=== PATIENT | female | born 1950 | race Caucasian/White ===

== ENCOUNTER 2018-09-14 14:15 | Inpatient (IN) ==
[2018-09-14] MEDS ORDERED: ZOFRAN IV PRN (15:11)
--- NOTE | 2018-09-14 15:21 | HISTORY AND PHYSICAL ---
HISTORY OF PRESENT ILLNESS: This is a 67-year-old white female patient of BRYSON Mccloud. She has had some tenderness in her left lower quadrant now for a couple of weeks. I saw her with recheck in the clinic 2 days ago, on Tuesday, and put her on a combination of Cipro 500 mg twice a day and Flagyl 500 mg twice a day, but she reports that she has been basically in the bed and lethargic for a couple of months with what she felt was respiratory congestion and even possible pneumonia. She is very short of breath and just getting up from the chair to get up on the exam table, she was short of breath. This shortness of breath seems to be more acute. She has had a history of DVT in the past. She denies any fever or chills, pleuritic pain or productive cough. No orthopnea, no paroxysmal nocturnal dyspnea, and no squeezing or pressure type chest pain. So, I am going to admit her for shortness of breath, look for pulmonary thromboemboli, treat her for diverticulitis, and make sure she does not have any pneumonia or respiratory tract infection. PAST MEDICAL HISTORY: 1. Venous thrombosis lower extremities. 2. She has been treated for bronchitis. 3. Anxiety disorder. 4. Chronic fatigue. 5. Essential hypertension. 6. Gastroesophageal reflux disease. 7. Homocystinuria. 8. Hyperlipidemia. 9. Former smoker, nicotine dependence. 10. Obesity. 11. She has had thrombocytopenia, which was nonspecific. Note, she has been seen by Dr. Zapata. She had a workup for hypercoagulability and only thing they found was hyperhomocystinemia and suspect a lot of her superficial thrombophlebitis was from varicose veins, her age, and hyperhomocystinemia. SOCIAL HISTORY: History of smoking. No alcohol. No illicit drugs. She had a myocardial perfusion scan which was essentially unremarkable and this was back in December 2017. Normal spirometry. Normal perfusion. Normal diffusion capacity. PAST SURGICAL HISTORY: Total abdominal hysterectomy, bilateral salpingectomy-oophorectomy, or BSO. She has had breast reduction, cholecystectomy, and bilateral tubal ligation. ALLERGIES: No known drug allergies. She used to smoke about 5 cigarettes a day, which she did for about 7 years. FAMILY HISTORY: Parents have . Mother had atrial fibrillation, father with cardiovascular issues. I think her mother also had blood clots and pemphigoid. REVIEW OF SYSTEMS: General: No weight gain or loss. No fever or chills. HEENT: She denies any change in vision or hearing acuity. Respiratory: She is very short of breath. Marked dyspnea on exertion, which seems to be worse as well. That is one of the reasons she wants to go to the hospital. She feels like she is having upper respiratory type symptoms. Cardiovascular: No chest pain or tachypalpitation. Gastrointestinal and Genitourinary: No change in bowels. Bowels seem to be moving. She has had left lower quadrant pain, which we are treating for diverticulitis. Musculoskeletal/Neurologic: No focal complaints. Endocrinologic/Hematologic: No significant history. PHYSICAL EXAMINATION: GENERAL: Well developed, well nourished, white female, pleasant. HEENT: Pupils are equal and round. LUNGS: Clear in all lung jerome. CARDIOVASCULAR: Regular rhythm and rate without murmur or S3. ABDOMEN: Soft. Left lower quadrant with mild tenderness to palpation. SKIN: Warm and dry. EXTREMITIES: No pedal edema. No palpable cords. No tenderness in the calf. Good pulses, carotid, radial and pedal pulses. ASSESSMENT AND PLAN: 1. Extreme shortness of breath with history of hyperhomocystinemia and she has had a history of deep venous thromboses and thrombophlebitis in the past. She has been in bed quite a bit. I want to make sure she does not have a pulmonary thromboembolus. Will check a CT angiogram and make sure her renal function is adequate. 2. Diverticulitis, discomfort in the left lower quadrant. She has already been started on antibiotics, which we will continue, a combination of Cipro 500 mg twice a day and Flagyl 500 mg twice a day. 3. General shortness of breath and dyspnea. We will check an echocardiogram to look at her left ventricular function, look at a chest x-ray, and see if we can improve her air and gas exchange. Will check some blood gases, too, when she gets here. 4. Hypertension. Will check blood pressure and continue present medications. 5. Obesity. 6. Some osteoarthritis. cc: Kenan Meza MD
[2018-09-14 15:45] LABS: URINE SOURCE CLEAN CATCH
[2018-09-14 15:53] LABS: BILIRUBIN URINE NEGATIVE (NEGATIVE); BLOOD URINE NEGATIVE (NEGATIVE); COLOR YELLOW; GLUCOSE URINE NEGATIVE (NEGATIVE); KETONE URINE NEGATIVE (NEGATIVE); LEUKOCYTES URINE SMALL (NEGATIVE); NITRITE URINE NEGATIVE (NEGATIVE); PH URINE 6.5; PROTEIN URINE NEGATIVE (NEGATIVE); SP GRAVITY URINE 1.002; TURBIDITY URINE CLEAR (CLEAR); UROBILINOGEN URINE NORMAL (NORMAL)
[2018-09-14 15:53] LABS: BASO# 0.02 X1000 (0.0-0.2); BASO% 0.2 % (0.0-0.8); EOS# 0.17 X1000 (0.0-0.7); EOS% 1.7 % (0.0-10.0); HEMATOCRIT 42.9 % (37.0-47.0); IMM GRAN# 0.03 X1000 (0.0-0.04); IMM GRAN% 0.3 % (0.0-0.5); LYMPH# 1.98 X1000 (1.2-3.4); LYMPH% 19.9 % (20.5-51.1); MCH 28.9 PG (27-31); MCHC 32.6 g/dL (33-37); MCV 88.6 FL (81-99); MONO# 0.89 X1000 (0.11-0.59); MONO% 8.9 % (1.7-9.3); MPV 10.7 FL (7.4-10.4); NEUT# 6.87 X1000 (1.4-6.5); PLT 138 X1000 (130-400); RBC 4.84 XMIL (4.2-5.4); RDW 13.4 % (11.5-14.5); WBC 9.96 X1000 (4.8-10.8)
[2018-09-14 15:54] LABS: UR EPITHELIAL CELLS <10 /HPF (<10); URINE BACTERIA NEGATIVE /HPF; URINE RBC <10 /HPF (<10); URINE WBC <10 /HPF (<10)
[2018-09-14 16:10] LABS: INR 1.09
[2018-09-14 16:11] LABS: PTT 30.2 Seconds (22.3-41.8)
[2018-09-14 16:12] LABS: AGAP 13; ALB/GLOB RATIO 1.3; ALBUMIN 3.4 g/dL (3.5-5.0); ALKALINE PHOSPHATASE 86 U/L (32-104); BUN 9 mg/dL (8-22); CALCIUM 8.2 mg/dL (8.8-10.2); CHLORIDE 101 mmol/L (98-107); COSMO 277; CREATININE 0.7 mg/dL (0.5-0.9); ESTIMATED GFR > 60; GLUCOSE 118 mg/dL (70-104); GOT 51 U/L (10-30); GPT 52 U/L (10-36); MAGNESIUM 1.6 mg/dL (1.5-2.7); POTASSIUM 3.6 mmol/L (3.5-5.1); SODIUM 139 mmol/L (136-145); TCO2 25 mmol/L (25-35); TOTAL BILIRUBIN 0.59 mg/dL (0.20-1.00); TOTAL PROTEIN 6.1 g/dL (6.3-8.3)
[2018-09-14 16:17] LABS: CK PROFILE 424 U/L (24-173)
[2018-09-14 16:32] LABS: T4 8.76 ug/dL (4.60-12.00); TSH 3.39 uIUmL (0.27-4.20)
[2018-09-14 16:40] LABS: CK INDEX 1.3 (0.0-2.5); CK-MB 5.62 ng/mL (0.0-5.0)
[2018-09-14] MEDS: NS 1,000 ML IV SCH (16:51)
[2018-09-14] MEDS: CIPRO 400 MG/D5W 400 MG/200 ML IVPB IV SCH (16:51)
[2018-09-14 17:04] LABS: ALLEN TEST YES; BE -0.6 mmoll (-3.0-3.0); BLOOD TYPE ARTERIAL; HCO3-(ACT) 24.4 mmoll (20.0-26.0); METHB 1.2 % (0.0-1.5); O2(CT) 18.9 mL/dL (15.0-23.0); PCO2(98.6) 35 mmHg (35-45); PO2(98.6) 84 mmHg (60-100); SAMPLE BLOOD; SAO2 97.6 % (95.0-100.0); THB 14.1 g/dL (11.5-17.4); pH(98.6) 7.43 (7.35-7.45)
[2018-09-14 17:05] LABS: MODALITY CANNULA
[2018-09-14] MEDS: FLAGYL 750 MG in NS 150 ML IV SCH (18:17)
[2018-09-15] MEDS: CIPRO 400 MG/D5W 400 MG/200 ML IVPB IV SCH ×2 (04:24→16:50)
--- NOTE | 2018-09-15 05:58 | Diag Imaging Result Doc PS360 ---
EXAM: CT ANGIOGRM PULMONARY ARTERIES HISTORY: poss PE TECHNIQUE: CT chest with intravenous contrast. Pulmonary arterial protocol with MIP images. COMPARISON: 10/31/2017 FINDINGS: No filling defects within the pulmonary arteries. There is pulmonary edema. Mild cardiomegaly. No pleural effusions. No thoracic aortic aneurysm or dissection. There are small mediastinal nodes. Several mediastinal and right hilar lymph nodes are calcified with granuloma. No consolidation. No bronchiectasis. Stable 6 mm nodule in the left lower lobe on image 71. There is atelectasis in the lower left lung. Limited images through the upper abdomen reveal hepatomegaly with fatty infiltration. IMPRESSION: 1.No pulmonary emboli 2.Mild cardiomegaly with pulmonary edema 3.A preliminary report was given at 11:32 PM on 09/14/2018. This exam was performed using automated exposure control, adjustment of mA or kV according to patient size, and/or use of iterative reconstruction technique. Electronically signed by Rudy Freitas 09/15/2018 5:56 AM
[2018-09-15] MEDS: FLAGYL 750 MG in NS 150 ML IV SCH ×2 (06:08→18:26)
[2018-09-15] MEDS: NS 1,000 ML IV SCH ×2 (07:17→11:51)
--- NOTE | 2018-09-15 07:22 | EKG Report ---
Test Performed on : 09/15/2018 06:40:02 AM Test Reason : chest pain Blood Pressure : / mmHG Vent. Rate : 066 BPM Atrial Rate : 066 BPM P-R Int : 154 ms QRS Dur : 080 ms QT Int : 422 ms P-R-T Axes : 039 072 060 degrees QTc Int : 442 ms Normal sinus rhythm. Normal ECG No previous ECGs available Confirmed by El GERONIMO, Jayant Douglas ([id number]) on 09/15/2018 8:11:33 AM
--- NOTE | 2018-09-15 08:16 | PROGRESS NOTE ---
DATE: 09/15/2018 SUBJECTIVE: Ms. Wheat still feels a little short of breath just in general. She has remained afebrile. Her CT angiogram did not show any pulmonary embolus but showed some pulmonary venous hypertension, some mild pulmonary edema. I am going to put her back on her home medicines and try to give her some Lasix each day and continue her antibiotics for diverticulitis. OBJECTIVE: Vital signs: Afebrile. Temp 98.1, pulse 70, respirations 16, blood pressure 104/57. HEENT: Pupils equal and round. Neck: No distended neck veins. Lungs: Clear. Abdomen: Soft, nondistended. Mild tenderness in the left lower quadrant. Cardiovascular: Regular rhythm and rate without murmur or S3. No pedal edema. Urine output was 1500 mL. ASSESSMENT AND PLAN: 1. Shortness of breath. No sign of pulmonary emboli but she does have mild pulmonary venous hypertension. Will give her some Lasix every morning. She is already on Eliquis. 2. Diverticulitis. Will give her some IV Cipro and Flagyl. I think she would benefit from 48 hours of some IV treatment. 3. Hypertension. Blood pressure appears well controlled. 4. Obesity. 5. Osteoarthritis. I have restarted her home medications. We are going to put her on Lasix every morning. Will follow her electrolytes with a basic metabolic profile each day. I think she will benefit from 48 hours of both IV antibiotic and diuretic. Will check an echocardiogram, look at her left ventricular function. cc: Kenan Meza MD
[2018-09-15] MEDS: LOPRESSOR PO SCH (09:01)
[2018-09-15] MEDS: CELEXA PO SCH (09:01)
[2018-09-15] MEDS: LASIX IV SCH (09:01)
[2018-09-15] MEDS: PRILOSEC PO SCH (09:01)
[2018-09-15] MEDS: NORVASC PO SCH (09:01)
[2018-09-15] MEDS: ELIQUIS PO SCH ×2 (09:01→21:44)
[2018-09-15] MEDS: HYZAAR 100/12.5 MG TAB PO SCH (09:01)
[2018-09-15] MEDS: NEXIUM PO SCH (09:13)
[2018-09-15] MEDS: TYLENOL PO PRN ×2 (09:15→21:44)
--- NOTE | 2018-09-15 10:22 | ECHO REPORT ---
ORDER DATE: 09/14/2018 MEASUREMENTS: Left ventricular end-diastolic diameter 3.6, end-systolic diameter 2.2, septal thickness 1.3, posterior wall thickness 1.3, aortic root 2.6, left atrium 3.5 SUMMARY: 1. Fair quality study. 2. Aortic valve is trileaflet and opens normally on 2-dimensional images. Peak gradient across the aortic valve is less than 10 mmHg. Mitral, tricuspid and pulmonic valves are without evidence of structural abnormality, with mild tricuspid regurgitation. The estimated systolic PA pressure by Doppler is 30 to 35 mmHg. The aortic root is normal in size. There is mild dilatation of the proximal ascending aorta measuring 3.5 cm in AP diameter. 3. Normal left ventricular chamber size with mild to moderate concentric left ventricular hypertrophy is demonstrated. Estimated left ventricular ejection fraction appears to be at least 65%. No regional wall motion abnormality is evident. Doppler suggests grade 1 left ventricular diastolic dysfunction. The left atrium is upper normal in size. The right atrium and right ventricle are normal in size with preserved right ventricular systolic function. 4. No pericardial effusion. 5. Appearance of inferior vena cava suggests normal central venous pressure. cc: MD Kenan Arteaga MD
[2018-09-15] MEDS: ZOCOR PO SCH (21:43)
[2018-09-15] MEDS: DESYREL PO SCH (21:44)
[2018-09-16] MEDS: NS 1,000 ML IV SCH ×2 (01:55→16:07)
[2018-09-16] MEDS: CIPRO 400 MG/D5W 400 MG/200 ML IVPB IV SCH ×2 (04:52→16:44)
[2018-09-16] MEDS: FLAGYL 750 MG in NS 150 ML IV SCH ×2 (05:02→18:10)
[2018-09-16] MEDS: NEXIUM PO SCH (06:29)
[2018-09-16 06:47] LABS: AGAP 12; BUN 9 mg/dL (8-22); CALCIUM 8.5 mg/dL (8.8-10.2); CHLORIDE 107 mmol/L (98-107); COSMO 286; CREATININE 0.7 mg/dL (0.5-0.9); ESTIMATED GFR > 60; GLUCOSE 139 mg/dL (70-104); MAGNESIUM 1.8 mg/dL (1.5-2.7); POTASSIUM 3.5 mmol/L (3.5-5.1); SODIUM 143 mmol/L (136-145); TCO2 24 mmol/L (25-35)
[2018-09-16] MEDS: LOPRESSOR PO SCH (08:39)
[2018-09-16] MEDS: PRILOSEC PO SCH (08:39)
[2018-09-16] MEDS: LASIX IV SCH (08:39)
[2018-09-16] MEDS: ELIQUIS PO SCH ×2 (08:39→21:41)
[2018-09-16] MEDS: CELEXA PO SCH (08:39)
[2018-09-16] MEDS: HYZAAR 100/12.5 MG TAB PO SCH (08:39)
[2018-09-16] MEDS: NORVASC PO SCH (08:39)
--- NOTE | 2018-09-16 13:59 | PROGRESS NOTE ---
DATE: 09/16/2018 SUBJECTIVE: Mrs. Wheat was admitted to [facility] with acute diverticulitis. Clinically, she is better. She still has some mild left lower quadrant discomfort and tenderness, but reports that she feels a lot better. She denies any nausea, vomiting or diarrhea. She is tolerating healthy heart diet. She had been having shortness of breath. Dr. Meza ordered an echocardiogram which demonstrated normal LV function of 65%. There was some mild diastolic dysfunction. Chest x-ray demonstrated mild pulmonary edema. He started Lasix. She is maintaining O2 saturations of 95-96% on 2 L of O2. She is breathing more comfortably. OBJECTIVE: Vital Signs: Temperature 98, pulse 61, respirations 18, BP 99/58. CV: Regular rate and rhythm. Lungs: Faint crackles in the bases bilaterally. Abdomen: Soft. Mild left lower quadrant tenderness to deep palpation. No rebound or guarding. ASSESSMENT AND PLAN: 1. Acute diverticulitis. Clinically, she is better. We will continue IV Cipro and Flagyl for another 24 hours and then will hopefully transition her to oral medications. 2. Acute congestive heart failure secondary to diastolic dysfunction. We will continue salt and fluid restrictions. We will continue to diurese with Lasix. We will titrate upward on the beta-blockers as tolerated. 3. Hypertension. Her blood pressure is a little bit low at 98/68. I am going to hold her amlodipine. cc: MD Kenan Villegas MD
[2018-09-16] MEDS: DESYREL PO SCH (21:40)
[2018-09-16] MEDS: TYLENOL PO PRN (21:40)
[2018-09-16] MEDS: ZOCOR PO SCH (21:41)
[2018-09-17] MEDS: CIPRO 400 MG/D5W 400 MG/200 ML IVPB IV SCH (04:06)
[2018-09-17] MEDS: NS 1,000 ML IV SCH (05:19)
[2018-09-17 06:15] LABS: AGAP 12; BUN 7 mg/dL (8-22); CHLORIDE 108 mmol/L (98-107); COSMO 293; CREATININE 0.8 mg/dL (0.5-0.9); ESTIMATED GFR > 60; GLUCOSE 173 mg/dL (70-104); MAGNESIUM 1.7 mg/dL (1.5-2.7); POTASSIUM 3.3 mmol/L (3.5-5.1); SODIUM 146 mmol/L (136-145); TCO2 26 mmol/L (25-35)
[2018-09-17] MEDS: FLAGYL 750 MG in NS 150 ML IV SCH (06:27)
[2018-09-17] MEDS: NEXIUM PO SCH (06:34)
[2018-09-17] MEDS: HYZAAR 100/12.5 MG TAB PO SCH (08:28)
[2018-09-17] MEDS: LASIX IV SCH (08:28)
[2018-09-17] MEDS: LOPRESSOR PO SCH (08:28)
[2018-09-17] MEDS: PRILOSEC PO SCH (08:28)
[2018-09-17] MEDS: ELIQUIS PO SCH (08:29)
[2018-09-17] MEDS: CELEXA PO SCH (08:29)
[2018-09-17] MEDS ORDERED: KLOR-CON PO ONE (11:36)
--- NOTE | 2018-09-17 11:42 | Diag Imaging Result Doc PS360 ---
EXAM: CHEST-2 VIEWS - 09/17/2018 HISTORY: CHF TECHNIQUE: Chest two views COMPARISON: 08/29/2017 FINDINGS: Heart size is normal. There are a few small granulomas from old granulomatous disease similar to prior. Mild left lower lung linear scarring. The lungs appear clear of acute changes. There is no pleural effusion or pneumothorax identified. IMPRESSION: No evidence of acute disease. Electronically signed by Chau Moulton 09/17/2018 11:40 AM
[2018-09-17 12:32] VITALS: BP 126/64
[2018-09-17] MEDS ORDERED: FLAGYL PO SCH (13:00)
--- NOTE | 2018-09-17 13:35 | DISCHARGE SUMMARY ---
ADMISSION DATE: 09/14/2018 DISCHARGE DATE: 09/17/2018 DISCHARGE DIAGNOSES: 1. Acute diverticulitis of the large intestine without perforation or hemorrhage. 2. Acute congestive heart failure secondary to diastolic dysfunction. 3. Essential hypertension. 4. Mixed hyperlipidemia. 5. Recurrent deep venous thromboses. 6. Major depression. DISCHARGE INSTRUCTIONS: 1. Return to clinic in 1 week in anticipation of a transition of care visit to see BRYSON Mccloud. 2. Activity as tolerated. 3. Healthy heart diet. 4. Medications. DISCHARGE MEDICATIONS: 1. Eliquis 5 mg b.i.d. 2. Cipro 500 mg b.i.d. for 7 days. 3. Celexa 40 mg daily. 4. Nexium 40 mg daily. 5. Cozaar 50 mg daily. 6. Lopressor 25 mg daily. 7. Flagyl 500 mg q.8 hours for 7 days. 8. Simvastatin 40 mg at bedtime. 9. Trazodone 50 mg at bedtime p.r.n. insomnia. DISCHARGE PHYSICAL EXAMINATION: General: This is a well-developed well-nourished very pleasant 67-year-old lady in no apparent distress. Vital signs: She is afebrile. Pulse 56, respirations 18, blood pressure 100/53. CARDIOVASCULAR: Regular rate and rhythm. Lungs: Clear. Abdomen: Soft, nontender, with active bowel sounds. No hepatosplenomegaly. No abdominal bruits. Ms. Wheat was admitted to [facility] with acute diverticulitis. She failed outpatient therapy. She was admitted for IV antibiotic therapy with IV Cipro and Flagyl over the course of her hospitalization, the abdominal pain resolved, she had no nausea, vomiting or diarrhea. She was advanced to a GI soft diet, which she tolerated. We transitioned her to oral antibiotics and she will continue to take an additional 7-day course of Cipro 500 mg b.i.d. and Flagyl 500 mg t.i.d. During her hospitalization, she was with complaint of shortness of breath. She had PND, orthopnea and mild edema. Her chest x-ray showed small amounts of pleural fluid. An echocardiogram demonstrated normal left ventricular function with an EF of 65% and grade 1 diastolic dysfunction. Pulmonary angiogram failed to demonstrate any evidence of PTE. She was treated with oxygen and was placed on a salt and fluid-restricted diet and was aggressively diuresed. Repeat chest x-ray on the day of discharge demonstrated clear lung jerome. She was maintaining O2 saturations of 95% to 96% on room air. I have asked her to weigh daily and to take a Lasix if she gains 2 pounds. Otherwise, she will hold the Lasix. Depending on her clinical course, she may require increased beta blockade to improve cardiac compliance. DISCHARGE INSTRUCTIONS: She has a longstanding history of hypertension. She had taken amlodipine, losartan HCT and Toprol as an outpatient. With aggressive diuresis with Lasix, she did have several episodes of hypotension. I stopped the Norvasc. I reduced the losartan to 50 mg daily and continued the Toprol 25 mg daily. We will continue to monitor her blood pressure as an outpatient. Having reached maximum hospital benefit, the patient was discharged in stable condition. cc: MD Kenan Villegas MD
--- NOTE | 2018-09-17 13:35 | DISCHARGE SUMMARY ---
ADMISSION DATE: 09/14/2018 DISCHARGE DATE: 09/17/2018 DISCHARGE DIAGNOSES: 1. Acute diverticulitis of the colon without hemorrhage or perforation. 2. Acute congestive heart failure secondary to diastolic dysfunction. 3. Personal history of nicotine dependence. 4. Essential hypertension. 5. Gastroesophageal reflux disease. 6. Major depression. DISCHARGE INSTRUCTIONS: 1. Return to clinic in 1 week to see BRYSON Mccloud. 2. GI soft diet. 3. Activity as tolerated. DISCHARGE MEDICATIONS: Eliquis 5 mg b.i.d., Cipro 500 mg b.i.d. for 7 days, Celexa 40 mg daily, Nexium 40 mg daily, Cozaar 50 mg daily, metoprolol 25 mg daily, Flagyl 500 mg q.8 hours. DISCHARGE PHYSICAL EXAMINATION: General: This is a well-developed, well-nourished, 67-year-old lady, in no apparent distress. Vital signs: Temperature 98.0 degrees, pulse 71, respirations 18, BP 105/64. CV: Regular rate and rhythm. Lungs: Clear. Abdomen: Soft, nontender, with active bowel sounds. No hepatosplenomegaly. No abdominal bruits. INCOMPLETE REPORT--DICTATION ENDS HERE. cc: MD Kenan Villegas MD
[2018-09-17] MEDS ORDERED: CIPRO PO SCH (21:00)
[2018-09-18] MEDS ORDERED: COZAAR PO SCH (09:00)
== END 2018-09-17 12:54 | disposition home or self-care (01) | DRG 291 ==
LOC: DIRADM 14:15 → 3S 14:48
PROVIDERS: ADMIT Emergency Medicine; ATTEND Emergency Medicine
CPT/HCPCS: 71020; 71046; 71275; 80048; 80053; 81001; 82550; 82553; 82607; 82746; 82805; 83735; 84436; 84443; 84484; 85025; 85610; 85730; 87088; 93005; 93010; 93306; 94761; 94799; A9270; J0744; J1940; J7030; Q9967; S0030